=== PATIENT | male | born 1980 | race Caucasian/White ===

== ENCOUNTER → 2017-01-19 | Outpatient (REF) | payer BC ==
[2017-01-19 12:13] LABS: BASO # 0.1 10^3/uL (0.0-0.2); BASO % 0.7 % (0.0-1.0); EOS # 0.1 10^3/uL (0.0-0.50); EOS % 1.7 % (0.0-3.0); IMMATURE GRANULOCYTE % 0.4 % (0-0); LYMPH # 1.4 10^3/uL (1.5-4.5); LYMPH % 17.8 % (24.0-44.0); MEAN CORPUSCULAR HEMOGLOBIN 26.8 pg (27.0-33.0); MEAN CORPUSCULAR HGB CONC 32.4 g/dl (32.0-36.5); MEAN CORPUSCULAR VOLUME 82.8 fl (80.0-96.0); MONO # 0.5 10^3/uL (0.0-0.8); MONO % 5.7 % (0.0-5.0); NEUTROPHILS # 5.9 10^3/uL (1.8-7.7); NEUTROPHILS % 73.7 % (36.0-66.0); PLATELET COUNT, AUTOMATED 332 10^3/uL (150-450); RED CELL DISTRIBUTION WIDTH 13.6 % (11.5-14.5)
[2017-01-19 12:31] LABS: ANION GAP 7 MEQ/L (8-16); BLOOD UREA NITROGEN 19 MG/DL (7-18); CALCIUM LEVEL 8.7 MG/DL (8.5-10.1); CARBON DIOXIDE LEVEL 28 MEQ/L (21-32); CHLORIDE LEVEL 107 MEQ/L (98-107); CREATININE FOR GFR 0.81 MG/DL (0.70-1.30); FREE T4 0.99 NG/DL (0.76-1.46); GLOMERULAR FILTRATION RATE > 60.0 (>60); GLUCOSE, FASTING 106 MG/DL (70-105); SODIUM LEVEL 142 MEQ/L (136-145)
== END ==
LOC: M LAB REF 09:34
PROVIDERS: ATTEND Physician Assistant Medical
DX: R63.5 Abnormal weight gain (principal); R53.83 Other fatigue

== ENCOUNTER → 2018-09-20 | Outpatient (REF) | payer OTHER ==
[2018-09-20 11:12] LABS: BASO # 0.1 10^3/uL (0.0-0.2); BASO % 0.6 % (0.0-1.0); EOS # 0.1 10^3/uL (0.0-0.50); EOS % 1.6 % (0.0-3.0); HEMATOCRIT 44.8 % (42.0-52.0); HEMOGLOBIN 14.5 g/dl (13.5-17.5); LYMPH # 1.4 10^3/uL (1.5-4.5); LYMPH % 16.8 % (24.0-44.0); MEAN CORPUSCULAR HEMOGLOBIN 27.8 pg (27.0-33.0); MEAN CORPUSCULAR HGB CONC 32.4 g/dl (32.0-36.5); MEAN CORPUSCULAR VOLUME 85.8 fl (80.0-96.0); MONO # 0.4 10^3/uL (0.0-0.8); MONO % 5.1 % (0.0-5.0); NEUTROPHILS # 6.1 10^3/uL (1.8-7.7); NEUTROPHILS % 75.5 % (36.0-66.0); PLATELET COUNT, AUTOMATED 337 10^3/uL (150-450); RED BLOOD COUNT 5.22 10^6/uL (4.30-6.10)
[2018-09-20 11:23] LABS: BLOOD UREA NITROGEN 14 MG/DL (7-18); CALCIUM LEVEL 8.9 MG/DL (8.5-10.1); CARBON DIOXIDE LEVEL 28 MEQ/L (21-32); CHLORIDE LEVEL 107 MEQ/L (98-107); CREATININE FOR GFR 0.73 MG/DL (0.70-1.30); GLOMERULAR FILTRATION RATE > 60.0 (>60); GLUCOSE, FASTING 87 MG/DL (70-100); POTASSIUM SERUM 4.2 MEQ/L (3.5-5.1); SODIUM LEVEL 144 MEQ/L (136-145)
[2018-09-20 11:29] LABS: HEMOGLOBIN A1c 5.7 %
== END ==
LOC: M LAB REF 10:54
PROVIDERS: ATTEND Physician Assistant Medical
DX: R73.01 Impaired fasting glucose (principal)

== ENCOUNTER → 2019-01-02 | Outpatient (REF) | payer BC ==
[2019-01-02 15:43] LABS: HEMATOCRIT 41.9 % (42.0-52.0); HEMOGLOBIN 13.6 g/dl (13.5-17.5); MEAN CORPUSCULAR HEMOGLOBIN 27.9 pg (27.0-33.0); MEAN CORPUSCULAR HGB CONC 32.5 g/dl (32.0-36.5); PLATELET COUNT, AUTOMATED 305 10^3/uL (150-450); RED BLOOD COUNT 4.87 10^6/uL (4.30-6.10); WHITE BLOOD COUNT 8.7 10^3/uL (4.0-10.0)
[2019-01-02 16:16] LABS: ALBUMIN 3.8 GM/DL (3.2-5.2); ALT/SGPT 31 U/L (12-78); BILIRUBIN,DIRECT < 0.1 MG/DL (0.0-0.2); BILIRUBIN,TOTAL 0.3 MG/DL (0.2-1.0); BLOOD UREA NITROGEN 22 MG/DL (7-18); CALCIUM LEVEL 8.5 MG/DL (8.5-10.1); CARBON DIOXIDE LEVEL 27 MEQ/L (21-32); CHLORIDE LEVEL 106 MEQ/L (98-107); CREATININE FOR GFR 0.88 MG/DL (0.70-1.30); GLOMERULAR FILTRATION RATE > 60.0 (>60); GLUCOSE, FASTING 84 MG/DL (70-100); PHOSPHORUS LEVEL 4.5 MG/DL (2.5-4.9); POTASSIUM SERUM 4.1 MEQ/L (3.5-5.1); SODIUM LEVEL 140 MEQ/L (136-145); TOTAL PROTEIN 6.7 GM/DL (6.4-8.2)
== END ==
LOC: M LAB REF 15:21
PROVIDERS: ATTEND Podiatrist Foot & Ankle Surgery
DX: B35.1 Tinea unguium (principal); Z79.899 Other long term (current) drug therapy

== ENCOUNTER → 2019-10-14 | Outpatient (CLI) | payer BC ==
[2019-11-14 10:35] LABS: BASO # 0.1 10^3/uL (0.0-0.2); BASO % 0.7 % (0.0-1.0); EOS # 0.1 10^3/uL (0.0-0.5); EOS % 1.7 % (0.0-3.0); HEMATOCRIT 42.7 % (42.0-52.0); HEMOGLOBIN 13.9 g/dl (13.5-17.5); LYMPH # 1.4 10^3/uL (1.5-5.0); LYMPH % 16.7 % (24.0-44.0); MEAN CORPUSCULAR HGB CONC 32.6 g/dl (32.0-36.5); MEAN CORPUSCULAR VOLUME 83.1 fl (80.0-96.0); MONO # 0.5 10^3/uL (0.0-0.8); MONO % 5.6 % (0.0-5.0); NEUTROPHILS # 6.2 10^3/uL (1.5-8.5); NEUTROPHILS % 75.1 % (36.0-66.0); PLATELET COUNT, AUTOMATED 323 10^3/uL (150-450); RED BLOOD COUNT 5.14 10^6/uL (4.30-6.10); WHITE BLOOD COUNT 8.2 10^3/uL (4.0-10.0)
[2019-11-27 22:19] LABS: ALBUMIN 3.9 GM/DL (3.2-5.2); ALT/SGPT 29 U/L (12-78); BILIRUBIN,TOTAL 0.3 MG/DL (0.2-1.0); BLOOD UREA NITROGEN 18 MG/DL (7-18); CALCIUM LEVEL 9.1 MG/DL (8.5-10.1); CARBON DIOXIDE LEVEL 28 MEQ/L (21-32); CHLORIDE LEVEL 108 MEQ/L (98-107); CHOLESTEROL LEVEL 169 MG/DL (<200); GLOMERULAR FILTRATION RATE > 60.0 (>60); GLUCOSE, FASTING 83 MG/DL (70-100); HDL CHOLESTEROL 44 MG/DL (>40); LDL CHOLESTEROL 96 MG/DL (<100); NON-HDL-C 125 MG/DL; POTASSIUM SERUM 4.3 MEQ/L (3.5-5.1); SODIUM LEVEL 140 MEQ/L (136-145); TOTAL PROTEIN 6.8 GM/DL (6.4-8.2); TRIGLYCERIDES LEVEL 145 MG/DL (<150)
== END ==
LOC: M LAB 15:50
PROVIDERS: ATTEND Nurse Practitioner Family
DX: Z00.00 Encounter for general adult medical examination without abnormal findings (principal)

== ENCOUNTER → 2020-01-27 | Outpatient (CLI) | payer SELFPAY | LOC: M LABSMTC 14:19 | PROVIDERS: ATTEND Pediatrics | DX: Z20.828 Contact with and (suspected) exposure to other viral communicable diseases (principal) ==

== ENCOUNTER → 2020-08-29 | Outpatient (CLI) | payer BC ==
[~2020-08-29] MED LIST: FLUTISP; NAPR-885 PO
[2020-08-29 10:11] LABS: BASO # 0.1 10^3/uL (0.0-0.2); BASO % 0.8 % (0.0-1.0); EOS # 0.2 10^3/uL (0.0-0.5); EOS % 2.4 % (0.0-3.0); HEMATOCRIT 42.1 % (42.0-52.0); HEMOGLOBIN 13.3 g/dl (13.5-17.5); LYMPH # 1.1 10^3/uL (1.5-5.0); LYMPH % 14.9 % (24.0-44.0); MEAN CORPUSCULAR HEMOGLOBIN 26.8 pg (27.0-33.0); MEAN CORPUSCULAR HGB CONC 31.6 g/dl (32.0-36.5); MEAN CORPUSCULAR VOLUME 84.9 fl (80.0-96.0); MONO # 0.5 10^3/uL (0.0-0.8); MONO % 6.3 % (2.0-8.0); NEUTROPHILS # 5.7 10^3/uL (1.5-8.5); NEUTROPHILS % 75.3 % (36.0-66.0); PLATELET COUNT, AUTOMATED 321 10^3/uL (150-450); RED BLOOD COUNT 4.96 10^6/uL (4.30-6.10); WHITE BLOOD COUNT 7.5 10^3/uL (4.0-10.0)
[2020-08-29 10:43] LABS: BLOOD UREA NITROGEN 14 MG/DL (7-18); CALCIUM LEVEL 8.5 MG/DL (8.5-10.1); CARBON DIOXIDE LEVEL 26 MEQ/L (21-32); CHLORIDE LEVEL 111 MEQ/L (98-107); GLOMERULAR FILTRATION RATE > 60.0 (>60); GLUCOSE, FASTING 93 MG/DL (70-100); POTASSIUM SERUM 4.3 MEQ/L (3.5-5.1); SODIUM LEVEL 142 MEQ/L (136-145)
--- NOTE | 2020-08-29 18:59 | ECGEPIP ---
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 Clincal correlation advised Electronically Signed on 08-29-2020 18:59:15 EDT by Higinio Nixon
== END ==
LOC: M LAB 09:19
PROVIDERS: ATTEND Podiatrist
DX: M72.2 Plantar fascial fibromatosis (principal); M79.672 Pain in left foot

== ENCOUNTER → 2020-09-05 | Outpatient (CLI) | payer SELFPAY | LOC: M LABSMTC 09:11 | PROVIDERS: ATTEND Anesthesiology | DX: Z01.818 Encounter for other preprocedural examination (principal); Z11.52 Encounter for screening for COVID-19 ==

== ENCOUNTER 2020-09-09 07:13 | Day surgery (SDC) | payer BC ==
[~2020-09-09] VITALS: Ht 180.3 cm; Wt 139.6 kg
[~2020-09-09 07:13] MED LIST changes: +LR 1,000 ML IV ONE; +ceFAZolin SOD 2 GM in IV 1 EA IV ONE
[2020-09-09] MEDS ORDERED: BUPIVACAINE HCL 0.5% 30 ML VIAL As Ordered ONE (07:14)
[2020-09-09] MEDS ORDERED: dexameTHASONE 4 MG/ML 1ML VIAL (J1100 PER 1MG) As Ordered ONE (07:15)
[2020-09-09] MEDS ORDERED: LIDOCAINE 2% MDV 20ML VIAL As Ordered ONE (07:15)
[2020-09-09] MEDS ORDERED: GENTAMICIN SULF 80MG/2ML VIAL As Ordered ONE (07:16)
[2020-09-09] MEDS ORDERED: fentaNYL 100 MCG/2 ML INJECTION As Ordered ONE (07:27)
[2020-09-09] MEDS ORDERED: ONDANSETRON 4MG/2ML VIAL As Ordered ONE (07:27)
[2020-09-09] MEDS ORDERED: LIDOCAINE 2% 100MG/5ML SDV (FOR ANES.) As Ordered ONE (07:27)
[2020-09-09] MEDS ORDERED: MIDAZOLAM INJ 2MG/2ML VIAL (J2250 PER 1MG) As Ordered ONE (07:27)
[2020-09-09] MEDS ORDERED: propofoL 200 MG/20 ML VIAL As Ordered ONE (07:27)
[2020-09-09] MEDS ORDERED: KETAMINE HCL 200 MG/20 ML VIAL As Ordered ONE (07:57)
[2020-09-09] MEDS ORDERED: KETOROLAC 60MG 2ML VIAL As Ordered ONE (08:30)
[2020-09-09] MEDS ORDERED: fentaNYL 100 MCG/2 ML INJECTION IV PRN (09:15)
[2020-09-09] MEDS ORDERED: METOCLOPRAMIDE INJ 10MG/2ML VIAL (J2765 PER 1) IV PRN (09:15)
[2020-09-09] MEDS ORDERED: ONDANSETRON 4MG/2ML VIAL IV PRN (09:15)
[2020-09-09] MEDS ORDERED: PERCOCET 5MG/325MG TAB PO PRN (09:15)
[2020-09-09] MEDS ORDERED: LR 1,000 ML IV SCH (09:15)
[2020-09-09 10:23] VITALS: BP 110/76
== END 2020-09-09 10:23 | disposition home or self-care (01) ==
LOC: M SDC 07:13
PROVIDERS: ATTEND Podiatrist
DX: M72.2 Plantar fascial fibromatosis (principal); R06.83 Snoring; Z88.2 Allergy status to sulfonamides
CPT/HCPCS: 29893; 97116; J0690; J1580; J1885; J2250; J2405; J3010

== ENCOUNTER → 2020-10-12 | Outpatient (REF) | payer BC ==
[~2020-10-12] MED LIST changes: -LR 1,000 ML IV ONE; -ceFAZolin SOD 2 GM in IV 1 EA IV ONE
[2020-10-12 14:53] LABS: ALBUMIN 3.8 GM/DL (3.2-5.2); ALT/SGPT 30 U/L (12-78); BILIRUBIN,TOTAL 0.3 MG/DL (0.2-1.0); BLOOD UREA NITROGEN 18 MG/DL (7-18); CARBON DIOXIDE LEVEL 27 MEQ/L (21-32); CHLORIDE LEVEL 107 MEQ/L (98-107); CHOLESTEROL LEVEL 197 MG/DL (<200); CREATININE FOR GFR 0.74 MG/DL (0.70-1.30); GLOMERULAR FILTRATION RATE > 60.0 (>60); GLUCOSE, FASTING 104 MG/DL (70-100); HDL CHOLESTEROL 49 MG/DL (>40); LDL CHOLESTEROL 132 MG/DL (<100); NON-HDL-C 148 MG/DL; POTASSIUM SERUM 4.3 MEQ/L (3.5-5.1); SODIUM LEVEL 142 MEQ/L (136-145); TOTAL PROTEIN 6.7 GM/DL (6.4-8.2); TRIGLYCERIDES LEVEL 81 MG/DL (<150)
== END ==
LOC: M LAB REF 13:17
PROVIDERS: ATTEND Nurse Practitioner Family
DX: Z00.00 Encounter for general adult medical examination without abnormal findings (principal)

== ENCOUNTER → 2021-10-19 | Outpatient (REF) | payer BC ==
[2021-10-19 12:40] LABS: BLOOD UREA NITROGEN 13 MG/DL (7-18); CALCIUM LEVEL 8.9 MG/DL (8.5-10.1); CARBON DIOXIDE LEVEL 29 MEQ/L (21-32); CHLORIDE LEVEL 105 MEQ/L (98-107); CHOLESTEROL LEVEL 207 MG/DL (<200); CHOLESTEROL RISK RATIO 5.307 (<5); CREATININE FOR GFR 0.92 MG/DL (0.70-1.30); GLOMERULAR FILTRATION RATE > 60.0 (>60); GLUCOSE, FASTING 105 MG/DL (70-100); HDL CHOLESTEROL 39 MG/DL (>40); LDL CHOLESTEROL 137 MG/DL (<100); NON-HDL-C 168 MG/DL; SODIUM LEVEL 138 MEQ/L (136-145); TRIGLYCERIDES LEVEL 155 MG/DL (<150)
== END ==
LOC: M LAB REF 11:20
PROVIDERS: ATTEND Nurse Practitioner Family
DX: Z00.00 Encounter for general adult medical examination without abnormal findings (principal)

== ENCOUNTER → 2022-02-08 | Outpatient (REF) | payer BC | LOC: M LAB REF 16:59 | PROVIDERS: ATTEND Registered Nurse | DX: R30.0 Dysuria (principal) ==

== ENCOUNTER 2024-11-27 09:50 | Day surgery (SDC) | payer BC ==
[~2024-11-27] VITALS: Ht 177.8 cm; Wt 129.2 kg
[~2024-11-27 09:50] MED LIST changes: +CLAR10CA3 PO; +MELO15TA28 PO; +SILD50TA2 PO; +TIRZ12.53 SC; +ceFAZolin SOD 2 GM IV ONCE IV ONE
[2024-11-27] MEDS ORDERED: ONDANSETRON 4MG 2ML VIAL As Ordered ONE (10:47)
[2024-11-27] MEDS ORDERED: LIDOCAINE 2% 100 MG/5 ML SDV (FOR ANES.) As Ordered ONE (10:47)
[2024-11-27] MEDS ORDERED: MIDAZOLAM INJ 2 MG/2 ML VIAL As Ordered ONE (10:47)
[2024-11-27] MEDS ORDERED: ACETAMINOPHEN 1000MG/100ML IV BAG As Ordered ONE (10:47)
[2024-11-27] MEDS: ceFAZolin SOD 3 GM in DEXTROSE 5% (D5W) MINI-BAG PLU 1... IV ONE (12:07)
[2024-11-27] MEDS: LIDOCAINE 2% MDV 20 ML VIAL As Ordered ONE (12:29)
[2024-11-27] MEDS ORDERED: KETOROLAC 30 MG/ML 1 ML VIAL As Ordered ONE (12:46)
[2024-11-27] MEDS: dexAMETHasone 4 MG/ML 1 ML VIAL As Ordered ONE (12:50)
[2024-11-27] MEDS ORDERED: LR 1,000 ML IV SCH (13:15)
[2024-11-27] MEDS ORDERED: HYDROMORPHONE HCL 0.5 MG/0.5 ML SYRINGE IV PRN (13:15)
[2024-11-27] MEDS ORDERED: ONDANSETRON 4MG 2ML VIAL IV PRN (13:15)
[2024-11-27 14:53] VITALS: BP 145/75; TEMP 97.4; O2SAT 98
== END 2024-11-27 14:56 | disposition home or self-care (01) ==
LOC: M SDC 09:50
PROVIDERS: ATTEND Podiatrist
DX: M72.2 Plantar fascial fibromatosis (principal); J30.1 Allergic rhinitis due to pollen; Z79.899 Other long term (current) drug therapy; Z88.2 Allergy status to sulfonamides
CPT/HCPCS: 29893; J0131; J0665; J0688; J1100; J1885; J2250; J2405; J3010